=== PATIENT | male | born 1960 | race Caucasian/White ===

== ENCOUNTER 2017-03-07 19:00 | Emergency (ER) | payer BC ==
[2017-03-07 19:40] LABS: CHLORIDE,CL 99 mEq/L (98-106); SODIUM,NA 136 mEq/L (136-145)
--- NOTE | 2017-03-07 19:42 | EDM.PDOC ---
ED HPI GENERAL MEDICAL PROBLEM - General Chief Complaint: Abdominal Pain Stated Complaint: RLQ PAIN Time Seen by Provider: 03/07/17 19:29 Source of Information: Reports: Patient History Limitations: Reports: No Limitations - History of Present Illness INITIAL COMMENTS - FREE TEXT/NARRATIVE: Mukesh is a 56 year old male who presents to the ED this evening with complaints of RLQ abdominal pain. He reports that the pain has been constant for the past two days. He describes the pain as sharp. He rates the pain a 7.5/ 10. Denies radiation of pain. Reports the pain has been localized to the RLQ since onset of pain. He reports he was unable to sleep last night due to the pain. He denies fever or chills, however temp is 99.0 F in ED. Denies any nausea , vomiting, constipation. Does report decreased appetite. He has not eaten anything since yesterday morning. Reports he has been drinking some water today. He reports he last had a sip of water at 1800 this evening. Reports he had a soft bowel movement about 4 hours ago. He did take a stool softener as he thought maybe the pain was caused by constipation. He is a diabetic. Denies any other PMH. Denies any past surgeries. He denies any alcohol or drug use. He has not tried taking anything for the pain. He reports pain is worsened by palpation. Onset Date: 03/05/17 Duration: Constant Location: Reports: Abdomen Quality: Reports: Ache, Sharp Severity: Severe Improves with: Reports: None Worsens with: Reports: Other (palpation) Associated Symptoms: Reports: Fever/Chills, Loss of Appetite. Denies: Confusion , Chest Pain, Cough, cough w sputum, Diaphoresis, Headaches, Malaise, Nausea/ Vomiting, Rash, Seizure, Shortness of Breath, Syncope, Weakness Right Lower Abdomen Pain Score (Numeric/FACES): 7 - Related Data Allergies Allergy/AdvReac Type Severity Reaction Status Date / Time Penicillins Allergy Cannot Verified 03/07/17 19:06 Remember Home Meds: Home Meds Tresiba 10 units SUBCUT DAILY 03/07/17 [History] Past Medical History HEENT History: Reports: Impaired Vision Endocrine/Metabolic History: Reports: Diabetes, Type II Social & Family History - Tobacco Use Smoking Status *Q: Former Smoker Used Tobacco, but Quit: Yes Month Tobacco Last Used: 3 YEARS AGO - Caffeine Use Caffeine Use: Reports: None - Recreational Drug Use Recreational Drug Use: No ED ROS GENERAL - Review of Systems Review Of Systems: See Below Constitutional: Reports: Fever, Decreased Appetite. Denies: Chills, Malaise, Weakness, Fatigue Respiratory: Reports: No Symptoms. Denies: Shortness of Breath, Cough, Sputum Cardiovascular: Reports: No Symptoms. Denies: Chest Pain, Dyspnea on Exertion, Edema, Lightheadedness, Syncope Endocrine: Reports: No Symptoms GI/Abdominal: Reports: Abdominal Pain (RLQ), Anorexia (for 1 day), Decreased Appetite, Distension, Flatus. Denies: Black Stool, Bloody Stool, Constipation, Diarrhea, Hematemesis, Hematochezia, Melena, Nausea, Vomiting : Reports: No Symptoms. Denies: Dysuria, Frequency, Urgency Skin: Reports: No Symptoms Neurological: Reports: No Symptoms. Denies: Confusion, Dizziness, Headache, Numbness, Tingling Psychiatric: Reports: No Symptoms Hematologic/Lymphatic: Reports: No Symptoms Immunologic: Reports: No Symptoms ED EXAM, GI/ABD - Physical Exam Exam: See Below Exam Limited By: No Limitations General Appearance: Alert, WD/WN, No Apparent Distress Head: Atraumatic, Normocephalic Neck: Normal Inspection, Supple, Non-Tender, Full Range of Motion Respiratory/Chest: No Respiratory Distress, Lungs Clear, Normal Breath Sounds, No Accessory Muscle Use, Chest Non-Tender Cardiovascular: Normal Peripheral Pulses, Regular Rate, Rhythm, No Edema, No Gallop, No JVD, No Murmur, No Rub GI/Abdominal Exam: Distended, Guarding (RLQ), Tender (RLQ), Abnormal Bowel Sounds (hypoactive). No: Rigid, Rebound Neurological: Alert, Oriented, CN II-XII Intact, Normal Cognition, Normal Gait, Normal Reflexes, No Motor/Sensory Deficits Psychiatric: Normal Affect, Normal Mood Skin Exam: Warm, Dry, Intact, Normal Color, No Rash Course - Vital Signs Last Recorded V/S: Last Vital Signs Temp 99.0 F 03/07/17 19:01 Pulse 102 H 03/07/17 19:01 Resp 16 03/07/17 19:01 BP 116/75 03/07/17 19:01 Pulse Ox 96 03/07/17 19:01 - Orders/Labs/Meds Orders: Active Orders 24 hr Category Date Time Status Abdomen Pelvis w Cont [CT] Stat Exams 03/07/17 19:42 Taken Piperacillin/Tazobactam [Zosyn] 4.5 gm Med 03/07/17 21:15 Ordered Sodium Chloride 0.9% [Normal Saline] 100 ml IV STAT Medication Orders Piperacillin Sod/Tazobactam (Sod 4.5 gm/ Sodium Chloride) 100 mls @ 200 mls/hr IV STAT MARISEL Labs: Laboratory Tests 03/07/17 03/07/17 03/07/17 Range/Units 19:20 19:20 19:20 WBC 12.1 H (5.0-10.0) 10^3/uL RBC 4.93 (4.50-6.00) 10^6/uL Hgb 14.1 (14.0-18.0) g/dL Hct 41.7 (40.0-54.0) % MCV 84.6 (82.0-94.0) fL MCH 28.6 (27.0-32.0) pg MCHC 33.8 (33.0-38.0) g/dL RDW Coeff of Erika 14.0 (11.0-15.0) % Plt Count 198 (150-400) 10^3/uL Neut % (Auto) 83.9 (35-85) % Lymph % (Auto) 8.7 L (10-55) % [place] % (Auto) 7.0 (0-16) % Eos % (Auto) 0.2 (0-5) % Baso % (Auto) 0.2 (0-3) % Neut # (Auto) 10.18 H (1.80-7.00) 10^3/uL Lymph # (Auto) 1.05 (1.00-4.80) 10^3/uL [place] # (Auto) 0.85 H (0.00-0.80) 10^3/uL Eos # (Auto) 0.03 (0.00-0.45) 10^3/uL Baso # (Auto) 0.02 10^3/uL Sodium 136 (136-145) mEq/L Potassium 3.8 (3.5-5.0) mEq/L Chloride 99 (98-106) mEq/L Carbon Dioxide 26 (21-32) mmol/L BUN 18 (7-18) mg/dL Creatinine 1.2 (0.7-1.3) mg/dL Est Cr Clr Drug Dosing 62.73 mL/min Estimated GFR (MDRD) > 60 (>=60) mL/min Glucose 215 H D (75-99) mg/dL Calcium 9.3 (8.4-10.1) mg/dL Total Bilirubin 0.9 (0.0-1.0) mg/dL AST 13 L (15-37) U/L ALT 27 (12-78) U/L Alkaline Phosphatase 63 (46-116) U/L C-Reactive Protein 14.4 H (0.2-0.8) mg/dL Total Protein 7.6 (6.4-8.2) g/dL Albumin 3.6 (3.4-5.0) g/dL Urine Color Yellow (YELLOW) Urine Appearance Clear (CLEAR) Urine pH 5.5 (4.5-8.0) Ur Specific [place] >= 1.030 H (1.003-1.020) Urine Protein 100 H (NEGATIVE) mg/dL Urine Glucose (UA) Negative (NEGATIVE) mg/dL Urine Ketones 80 H (NEGATIVE) mg/dL Urine Occult Blood Trace-intact H (NEGATIVE) Urine Nitrite Negative (NEGATIVE) Urine Bilirubin Small H (NEGATIVE) Urine Urobilinogen 0.2 (0.2-1.0) EU/dL Ur Leukocyte Esterase Negative (NEGATIVE) Urine RBC 0-5 (0-5) /HPF Urine WBC Not seen (0-5) /HPF Urine Mucus Moderate H (NOT SEEN) /HPF Meds: Medications Generic Name Dose Route Start Last Admin Trade Name Freq PRN Reason Stop Dose Admin Piperacillin Sod/Tazobactam 100 mls @ 200 mls/hr 03/07/17 21:15 Sod 4.5 gm/ Sodium Chloride IV STAT MARISEL Discontinued Medications Generic Name Dose Route Start Last Admin Trade Name Freq PRN Reason Stop Dose Admin Sodium Chloride 1,000 mls @ 999 mls/hr 03/07/17 19:48 03/07/17 19:54 Normal Saline IV 03/07/17 20:48 999 mls/hr .BOLUS ONE Administration - Radiology Interpretation Free Text/Narrative:: Radiologist called with CT report. CT shows acute appendicitis. CT Results Date: 03/07/17 CT Results Time: 20:45 - Re-Assessments/Exams Free Text/Narrative Re-Assessment/Exam: Lab results discussed with patient. WBC and CRP elevated. Departure - Departure Time of Disposition: 21:10 Disposition: DC/Tfer to Acute Hospital 02 Condition: Good Clinical Impression: Appendicitis Qualifiers: Appendicitis type: acute appendicitis Acute appendicitis type: unspecified acute appendicitis type Qualified Code(s): K35.80 - Unspecified acute appendicitis - Discharge Information Referrals: Deshaun Urrutia MD [Primary Care Provider] - Forms: ED Department Discharge - Problem List & Annotations (1) Appendicitis SNOMED Code(s): 91539529 Code(s): K37 - UNSPECIFIED APPENDICITIS Status: Acute Priority: High Current Visit: Yes Qualifiers: Appendicitis type: acute appendicitis Acute appendicitis type: unspecified acute appendicitis type Qualified Code(s): K35.80 - Unspecified acute appendicitis - Problem List Review Problem List Initiated/Reviewed/Updated: Yes - My Orders Last 24 Hours: My Active Orders 03/07/17 19:42 Abdomen Pelvis w Cont [CT] Stat 03/07/17 21:15 Piperacillin/Tazobactam [Zosyn] 4.5 gm Sodium Chloride 0.9% [Normal Saline] 100 ml IV STAT - Assessment/Plan Last 24 Hours: My Active Orders 03/07/17 19:42 Abdomen Pelvis w Cont [CT] Stat 03/07/17 21:15 Piperacillin/Tazobactam [Zosyn] 4.5 gm Sodium Chloride 0.9% [Normal Saline] 100 ml IV STAT Plan: Patient will be transferred to [facility] via private vehicle. Discussed case with Dr. Arana (general surgeon) who accepted patient for transfer. Patient to present to ED upon arrival. Patient refuses to be transferred via EMS. He will have a straddle bug driver take him by private vehicle. He has declined pain medications throughout ED visit. Discussed risks of transfer via private vehicle. Risks of transfer via private vehicle include vehicle crash, worsening of condition, increased pain, no access to pain medications and enroute. Benefit includes specialized surgical care upon arrival. Patient voices understanding and wishes to proceed with transfer via private vehicle. Patient has not eaten since yesterday. Last sip of fluids was at 1800.
[2017-03-07] MEDS ORDERED: Sodium Chloride 0.9% 1,000 ML IV ONE (19:48)
[2017-03-07] MEDS ORDERED: Piperacillin/Tazobactam 4.5 GM in Sodium Chloride 0.9% 100 ML IV SCH (21:15)
== END 2017-03-07 22:15 ==
LOC: CC.ED 19:00
DX: K35.80 Unspecified acute appendicitis (principal); E11.9 Type 2 diabetes mellitus without complications; Z88.0 Allergy status to penicillin; Z79.4 Long term (current) use of insulin; Z87.891 Personal history of nicotine dependence
CPT/HCPCS: 36415; 74177; 80053; 81001; 85025; 86140; 96361; 96365; 99285; J2543; J7030; J7050; Q9967